=== PATIENT | female | born 2000 | race Caucasian/White ===

== ENCOUNTER 2024-12-12 15:45 | Emergency (ER) | payer OTHER, SELFPAY ==
--- OUTSIDE RECORDS SUMMARY | 2024-12-12 15:48 | XMS_ITS | Clinical Summary ---
Author Organization [employer] 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 30 Tablet 2 Active famotidine (PEPCID) 40 mg tabletIndications:N ausea and vomiting, unspecified vomiting type Take 1 Tablet (40 mg) by mouth in the morning and 1 Tablet (40 mg) in the evening. 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 Controlled substance agreement signed 05/12/2018 Overview (05/12/2018): 04/19/18 signed Heidy Amaya MD/psychiatry Iron deficiency anemia 05/04/2018 Bipolar disorder 04/08/2018 Suicide ideation 04/07/2018 Family relationship problem 05/06/2017 Panic disorder 04/15/2017 Generalized anxiety disorder 03/29/2017 Social anxiety disorder 03/11/2017 Hyperlipidemia 03/11/2017 Resolved Problems Problem Noted Date Diagnosed Date Resolved Date Borderline personality disorder 03/02/2018 06/03/2018 Cluster B personality disorder in adult 11/05/2017 03/19/2018 Major psychotic depression, recurrent 10/26/2017 11/26/2017 Personality disorder, unspecified 10/26/2017 11/05/2017 Depression, major, single episode, moderate 03/11/2017 03/19/2018 Immunizations Immunization Administration Dates Next Due Human Papilloma Virus Vaccine 07/22/2012, 012,12/02/2011 Human Papilloma Virus Vaccine, Unspecified 01/28,12/02/2011,04/19/2009 Influenza A (H1N1), Inactivated 04/19/2009 Influenza Virus, Unspecified 02/20/2019 Influenza, IIV3 (Age 6-35 mos) 05/24/2012 Influenza, IIV3 (Age >=3 years) 03/06/2018,01/31,04/20/2011 Influenza,LAIV4 Live Intranasal (Flumist) 2012,04/20/2011 MENINGOCOCCAL VACCINE 2 VIAL 2MO-55YO (MENVEO) 11/11/2015 Meningococcal Vaccine (Menactra) 05/24/2012,04/02 Tdap 04/20/2011 Varicella Vaccine 12/24/2011 Family History Medical History Relation Name Comments Hypertension Father Corbin Unknown Maternal Grandfather Gilberto Depression Maternal Grandmother Denae Seizures Maternal Grandmother Denae Allergies Mother Bebe Anxiety disorder Mother Bebe Cataracts Mother Bebe Depression Mother Bebe Other Mother Bebe had a tough ch ildhood, was in and out of foster care Good Health Paternal Grandfather Rich Good Health Paternal Grandmother Joanne Good Health Sister 1 Ian Good Health Sister 2 Miheala Relation Name Status Comments Father Corbin Alive Maternal Grandfather Gilberto Maternal Grandmother Denae Alive Mother Bebe Alive Paternal Grandfather Rich Alive Paternal Grandmother Joanne Alive Sister 1 Ian Alive Sister 2 Mihaela Alive Social History Tobacco Use Types Packs/Day Years Used Date Smoking Tobacco: Former Cigarettes 0.3 0.5 0 11/07/2017 - 05/09/2018 Smokeless Tobacco: Never Tobacco Cessation:Counseling Given: Yes Alcohol Use Standard Drinks/Week Comments Yes 0 (1 standard drink = 0.6 oz pur e alcohol) PHQ-2 Answer Date Recorded PHQ-2 TOTAL SCORE 2 12/25/2022 Social Connections Answer Date Recorded Do you often feel lonely or isolated from those around you? 0 10/11/2023 Financial Resource Strain Answer Date R ecorded Difficulty of Paying Living Expenses 3 10/11/2023 Difficulty of Paying Living Expenses Not on file 10/11/2023 Food Insecurity Answer Date Recorded Do you worry your food will run out before you are able to buy more? 1 10/11/2023 Transportation Needs Answer Date Record ed Does lack of transportation keep you from medica l appointments? 1 10/11/2023 Does lack of transportation keep you from work, meetings or getting things that you need? 1 10/11/2023 Housing Stability Answer Date Recorded What is your housing situation today? 1 10/11/2023 Utilities Answer Date Recorded Do you have trouble paying f or utilities (for example, heat, electricity, water, phone)? 1 10/11/2023 Comments No Sex and Gender Information Value Date Recorded Sex Assigned at Not on file Legal Sex Female 5:39 AM CLINICAL PRACTITIONER Gender Identity Not on file Sexual Orientation Not on file Occupation Industry Job Start Date Job End Date unemployed Not on file Not on file Not on file Obstetrics History Para Term AB IAB SAB Ectopic Multiple Livin g Live Births 0 0 0 0 0 0 0 0 0 0 0 Last Filed Vital Signs Vital Sign Reading Time Taken Comments Blood Pressure 110/76 10/11/2023 7:44 AM CDT Pulse 95 10/11/2023 7:44 AM CDT Temperature 37.5 C (99.5 F) 11/18/2021 11:49 AM CDT Respiratory Rate 16 06/29/2019 4:00 PM CLINICAL PRACTITIONER Oxygen Saturation 99% 10/11/2023 7:44 AM CDT Inhaled Oxygen Concentration - - Weight 93.9 kg (207 lb) 10/11/2023 7:44 AM CDT Height 165.1 cm (5' 5) 12/25/2022 1:39 PM CDT Body Mass Index 34.45 12/25/2022 1:39 PM CDT Plan of Treatment Health Maintenance Due Date Last Done Comments Hepatitis C screening for age 18-79 2017 Hepatitis B series for 19+ (1 of 3 - 19+ 3-dose series) 2018 Pap test for age 21-65 01/17/2020 Tetanus booster 04/20/2021 04/20/2011 BMI (ht and wt on same day) for age 18+ 12/26/2023 12/25/2022, 06/08/2019, 07/27/2018, Additional history exists Depression screening for age 12+ 12/26/2023 12/25/2022, 06/08/2019, 05/02/2019, Additional history exists COVID-19 vaccine series ( - 2023- season) 2024 04/03/2021, 06/03/2020, 05/10/2020 Influenza Vaccine (#1) 2025 9, 03/06/2018, 01/31/2017, Additional history exists HPV series for age 9-26 Completed 07/23/19 13, 01/29/2012, 01/29/2012, Additional history exists HIV for age 15-65 Completed 05/04/2018, 08/25/2017 Pneumococcal series for age 6-49 Aged Out No longer eligible based on patient's age to complete this topic Procedures Procedure Name Priority Date/Time Associated Diagnosis Comments ANTI HIV 1/2 Routine 05/04/2018 9:21 AM CLINICAL PRACTITIONER Encounter for screening for HIV from Last 3 Months or Most Recently Relevant to Health Maintenance Results * ANTI HIV 1/2 (05/04/2018 9:21 AM CLINICAL PRACTITIONER) HIV-1/HIV-2 ANTIBODY Non-Reacti ve Non-Reacti ve 05/04/2018 5:46 PM CLINICAL PRACTITIONER [facility] Comment:HIV-1 p24 and HIV-1/ HIV-2 Ab not detected. Blood BLOOD SPECIMEN / Unknown Venipuncture / Unknown 05/04/2018 9:21 AM CLINICAL PRACTITIONER 05/04/2018 9:21 AM CLINICAL PRACTITIONER us Bebe Sauer MD SEND OUTS Final Result [facility] [address] [place] [address], [place] from Last 3 Months or Most Recently Relevant to Health Maintenance Insurance [employer] [place] Advance Directives * Full Code (Latest Code Status on File) Date Activated Date Inactivated Comments 10/27/2017 11:25 AM 11/08/2017 4:08 PM Question Answer Comments Code Status Discussion: Not Discussed Care Teams Bicycle Repairman Relationship Specialty Start Date End Date Pcp, No . PCP - General 11/13/22
[2024-12-12 15:55] VITALS: BP 140/83; PULSE 98; RESP 20; TEMP 36.7; O2SAT 100; BMI 34.9
--- NOTE | 2024-12-12 17:47 | ED.GENADULT ---
HPI - General Adult General Date Seen: 12/12/24 Chief complaint: Unspecified Complaint, Adult Stated complaint: Pricked by used glucose test needle Time Seen by Provider: 12/12/24 15:59 Source: patient Mode of arrival: ambulatory Limitations: no limitations History of Present Illness HPI narrative: The patient is a 24-year-old female presenting to the emergency department for a needle stick. 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 While she was working this she poked herself with a used needle. She was told to come to the emergency department by the nurse at her shelter. She states she is vaccinated for hepatitis-B and C and so was the resident of the shelter. No other concerns noted. Related Data Home Medications ?Medication ?Instructions ?Recorded ?Confirmed No Known Home Medications 12/12/24 12/12/24 Allergies Allergy/AdvReac Type Severity Reaction Status Date / Time No Known Drug Allergies Allergy Verified 12/12/24 15:55 Review of Systems Narrative: Pertinent systems reviewed and were negative unless stated in HPI Exam Narrative: Exam Narrative: Const: Well-nourished, Well-developed, in no distress Eyes: PERRL, no conjunctival injection, and symmetrical lids HENT: Atraumatic external nose and ears. Moist mucous membranes. MSK:Extremities w/o deformity, Normal Active ROM Skin: Warm, Dry. No rashes or lesions. Neuro: Normal Muscle tone, No focal neurological deficits. Psych: Awake, Alert, & Oriented x3. Appropriate mood and affect. Const: Vital Signs, click to edit/add: Vital Signs - 24 hr 12/12/24 15:55 Temperature 98.0 F Pulse Rate [Pulse Oximeter] 98 Respiratory Rate 20 Blood Pressure [Ri ght Upper Arm] 140/83 H Pulse Oximetry 100 Oxygen Delivery Me thod Room Air Course Vital Signs Vital signs: Initial Vital Signs Temperature 98.0 F 12/12/24 15:55 Temperature Source Temporal Artery Scan 12/12/24 15:55 Pulse Rate 98 12/12/24 15:55 Respiratory Rate 20 12/12/24 15:55 Blood Pressure 140/83 H 12/12/24 15:55 Blood Pressure Mean 102 12/12/24 15:55 Pulse Oximetry 100 12/12/24 15:55 Oxygen Delivery Method Room Air 12/12/24 15:55 Vital Signs Temperature 98.0 F 12/12/24 15:55 Pulse Rate 98 12/12/24 15:55 Respiratory Rate 20 12/12/24 15:55 Blood Pressure 140/83 H 12/12/24 15:55 Pulse Oximetry 100 12/12/24 15:55 Oxygen Delivery Method Room Air 12/12/24 15:55 Temperature 98.0 F 12/12/24 15:55 Pulse Rate 98 12/12/24 15:55 Respiratory Rate 20 12/12/24 15:55 Blood Pressure 140/83 H 12/12/24 15:55 Pulse Oximetry 100 12/12/24 15:55 Oxygen Delivery Method Room Air 12/12/24 15:55 Medical Decision Making MDM Narrative Medical decision making narrative: Patient is a 24-year-old female presenting for a needlestick. She is unaware of policy at the shelter for needle sticks. She was told by the nurse to come to the emergency department. She has no other complaints. For needle sticks and [facility] we draw the labs of the blood source and the person who that stuck by a needle. Due to that I will order the HIV and hepatitis C/B antibody test. I informed her to speak to her work about drawing the blood of the patient. She is low risk and does not require HIV prophylaxis. She will be discharged Discharge Plan Discharge Clinical Impression: Needlestick injury accident with exposure to body fluid Patient Disposition: Home, Self-Care Condition: Stable Instructions: Needle Stick Injuries (ED) Additional Instructions: Speak to your work about drawn the blood of the source. Return to emergency department for concerning symptoms. Otherwise follow-up with your primary care provider Prescriptions: No Action No Known Home Medications Follow Up/Referrals: Bebe Sauer MD [Primary Care Provider, Family Practice] Stand Alone Forms: [employer] Info Instructions
[2024-12-12 19:39] LABS: HIV 1/2/P24 Combo Screen* Negative (Negative)
[2024-12-12 19:47] LABS: Hepatitis C Virus Antibody* Negative (Negative)
[2024-12-12 20:58] LABS: Hepatitis B Surface Antibody* Positive (Negative)
== END 2024-12-12 18:05 | disposition home or self-care (01) ==
LOC: ED 18:00
PROVIDERS: Emergency Provider Student in an Organized Health Care Education/Training Program
DX: Z77.21 Contact with and (suspected) exposure to potentially hazardous body fluids (principal)
CPT/HCPCS: 36415; 86703; 86706; 86803; 99282; 99283